=== PATIENT | male | born 1995 | race Caucasian/White ===

== ENCOUNTER 2019-12-21 10:36 | Outpatient (CLI) | payer BC ==
--- NOTE | 2019-12-21 11:44 | RAD ---
RADIOGRAPH CHEST 2 VIEWS: DATE: 12/21/2019 HISTORY: 24-year-old male with ICD-10: J93.9 pneumothorax, unspecified. COMPARISON: None. FINDINGS: There is no air space density, pulmonary edema, pleural effusion, pneumothorax, or cardiomegaly. There is S-shaped lateral curvature of the thoracic spine. IMPRESSION: 1. No acute cardiopulmonary findings. 2. Mild scoliosis. carlitos [] POS: AH
== END 2019-12-21 10:37 | disposition home or self-care (01) ==
LOC: RAD 10:36
PROVIDERS: ATTEND Surgery
DX: J93.9 Pneumothorax, unspecified (principal); M41.9 Scoliosis, unspecified
CPT/HCPCS: 71046